=== PATIENT | female | born 1960 ===

== ENCOUNTER 2016-05-30 20:28 | Emergency (ER) | payer MEDICAID ==
[~2016-05-30] VITALS: Ht 154.9 cm; Wt 79.5 kg
[~2016-05-30 20:28] MED LIST: OXYC1TAB24 PO; SULF1TAB7 PO; TRAZ-115 PO; VENL75TA3 PO
[2016-05-30 20:35] VITALS: BP 136/84; PULSE 107; RESP 18; O2SAT 98
[2016-05-30 22:38] LABS: BASOPHILS % (AUTO) 0.3 % (0-3); EOSINOPHILS % (AUTO) 1.6 % (0-5); MONOCYTES % (AUTO) 7.9 % (4-12); Mean Corpuscular Volume 88.3 fL (81-100); NEUTROPHILS % (AUTO) 66.9 % (40-74); Platelet Count 375 bil/L (150-400)
--- NOTE | 2016-05-30 23:07 | ED.REPORT ---
HPI-Rash / Abscess Date of Service May 30, 2016 ED Provider: Dr. Matt Joel MD A 55 year old female with a history of cellulitis and substance abuse presents to the ED complaining of a rash to her head that first appeared a few weeks ago. Patient is currently taking Amoxicillin with no relief. She states that the affected areas are painful and itchy. She denies any chance of . Patient has no other medical complaints at this time. Nursing Notes Stated Complaint: NECK AND EAR PAIN, BLISTERS ON HEAD Chief Complaint: General Complaint Nursing Notes Reviewed: Yes Allergies: Coded Allergies: ibuprofen (Verified Adverse Reaction, Unknown, ulcers, 01/09/16) Uncoded Allergies: SPIDERS (Allergy, Unknown, 10/27/14) Scheduled Sulfamethoxazole/Trimeth 800-160 mg (Bactrim DS) 1 Each Tablet 1 TABLET PO BID Trazodone (Trazodone) 50 Mg Tablet 50 MG PO HS Venlafaxine (Venlafaxine) 75 Mg Tablet 225 MG PO DAILY Scheduled PRN oxyCODONE-Acetaminophen 5-325 mg (oxyCODONE-Acetaminophen 5-325 mg) 1 Each Tablet 1 TAB PO Q4H PRN PRN For Pain General Time Seen by MD: 23:07 Chief Complaint Rash Hx Obtained From: Patient Arrived By: Walk-in Onset Occurred: More than a week ago... (4 weeks) Symptom Duration: Since onset Location: : Head/face Quality: Painful Severity: Current: Mild Severity: Maximum: Mild Pertinent Negative: Pt denies other symptoms Recent Healthcare: No recent doctor visit, No recent hospitalization Past Medical History Past Medical History H/o substance abuse- crack cocaine TMJ Past Surgical History Knee surgery, ankle surgery, foot surgery Family History noncontributory Smoking History Current Every Day Smoker Social History Alcohol Use: Denies alcohol use Drug Use: THC Other Social History: Ambulatory Status Independent Review of Systems Constitutional: Denies: Chills, Fever Respiratory: Denies: Shortness of breath Cardiovascular: Denies: Chest pain GI: Denies: Abdominal pain, Nausea, Vomiting Skin: Reports Itching, Reports Rash (Rash/abscesses to head and face) Complete sys rev & neg: except as marked. Neurologic: Denies: Change LOC Physical Exam Initial Vital Signs Vital Signs (First) Date Time Temp Pulse Resp B/P Pulse Ox O2 Delivery O2 Flow Rate FiO2 05/30/16 20:35 36.3 107 18 136/84 98 Room Air Initial VS: Reviewed Head / Eyes: Atraumatic, Normocephalic, PERRL Respiratory: Breath sounds normal, Clear to auscultation, No respiratory distress Cardiovascular: Regular rate & rhythm, Heart sounds normal, Intact distal pulses Extremities: Vascular intact, Neuro intact, No swelling, No tenderness Neurologic: Alert, Oriented, Nonfocal General/Constitutional: Awake, Alert Skin: Atraumatic Rash / Lesion Notes: SKIN/RASH: multiple excoriations to the scalp Cellulitis to the scalp, neck and lymph nodes. Neck: Atraumatic, Supple NECK: Posterior cervical adenopathy Interpretation & Diagnostics Lab Results Interpretation Result Diagram: 05/30/16222105/30/16 222 Test 05/30/16 22:22 White Blood Count 10.6th/mm3 (3.8-10.1) Red Blood Count 4.35mil/mm3 (3.90-5.20) Hemoglobin 12.6g/dL (12.0-15.6) Hematocrit 38.4% (35.0-46.0) Mean Corpuscular Volume 88.3fL (81-100) Mean Corpuscular Hemoglobin 29.0pg (27.0-35.0) Mean Corpuscular Hemoglobin Concent 32.8% (32.0-37.0) Red Cell Distribution Width 13.8% (12.3-15.4) Platelet Count 375bil/L (150-400) Neutrophils (%) (Auto) 66.9% (40-74) Lymphocytes (%) (Auto) 23.1% (14-46) Monocytes (%) (Auto) 7.9% (4-12) Eosinophils (%) (Auto) 1.6% (0-5) Basophils (%) (Auto) 0.3% (0-3) Sodium Level 139mEq/L (134-144) Potassium Level 4.3mEq/L (3.5-5.2) Chloride Level 102mEq/L (97-108) Carbon Dioxide Level 24mmol/L (18-29) Blood Urea Nitrogen 12mg/dL (6-24) Creatinine 0.67mg/dL (0.57-1.00) Estimat Glomerular Filtration Rate 132mL/min (>59) Glucose Level 105mg/dL (60-99) Calcium Level 9.1mg/dL (8.5-10.1) Total Bilirubin 0.2mg/dL (0.0-1.2) Aspartate Amino Transf (AST/SGOT) 15U/L (0-50) Alanine Aminotransferase (ALT/SGPT) 12U/L (0-32) Alkaline Phosphatase 106U/L (25-150) Total Protein 7.5g/dL (6.4-8.4) Albumin 4.1g/dL (3.4-5.0) Hold Hansen Top Tube Received (Received) Re-Eval/Medical Decision Re-Evaluation/Progress : Time of Eval: 23:23 Patient Status: Condition improved Re-Evaluation/Progress Note: Patient is rechecked. She is informed of her lab results and diagnoses. All of the patient's questions are addressed. She understands and agrees with the treatment plan to discharge with a new antibiotic. Counseled Regarding: Diagnosis, Lab results, Need for follow-up, When/why to return to ED Discharge & Departure Impression: Primary Impression: Cellulitis Site of cellulitis: unspecified site Qualified Code: L03.90 - Cellulitis, unspecified Additional Impression: Adenitis Disposition: Home Discharge Condition All VS Reviewed: Yes Condition: Stable Patient Instructions: Cellulitis (ED) Additional Instructions: Thank you for trusting us with your care this evening. Please take Clindamycin twice daily for the next 5 days. Apply to all areas with open wounds. Take Ativan every 4-6 hours to help with anxiety and reduce itchiness. Schedule a follow up appointment with your primary care physician in the next week for a recheck. Please return to the emergency department for any new or worsening conditions. Please do not drink, drive or use acetaminophen while taking the Ativan. Referrals: Zohreh Cerda PA-C (PCP) Scribe Attestation Portions of this note were transcribed by Rafael Cristina. I, Dr. Joel personally performed the history, physical exam and medical decision-making; I reviewed and confirmed the accuracy of the information in the transcribed note. Signed by: Glory Santos, 05/30/16 [id number]. copies to: Zohreh Cerda PA-C, Todd P DO May 30, 2016 23:07 RAFAEL CRISTINA May 30, 2016 23:18
[2016-05-30] MEDS ORDERED: Mupirocin 2% 22 Gm Ointment TOPICAL ONE (23:15)
[2016-05-30] MEDS ORDERED: LORazepam 1 mg Tablet PO ONE (23:15)
== END 2016-05-30 23:46 | disposition home or self-care (01) ==
LOC: SED 20:28
DX: L03.811 Cellulitis of head [any part, except face] (principal); L03.221 Cellulitis of neck; L04.0 Acute lymphadenitis of face, head and neck; F17.200 Nicotine dependence, unspecified, uncomplicated; Z88.6 Allergy status to analgesic agent

== ENCOUNTER 2016-07-09 11:39 | Emergency (ER) | payer MEDICAID ==
[~2016-07-09] VITALS: Ht 154.9 cm; Wt 77.3 kg
[2016-07-09 11:43] VITALS: BP 145/77; PULSE 84; RESP 20; O2SAT 99
--- NOTE | 2016-07-09 13:59 | ED.REPORT ---
HPI-Extremity Problem Lower Date of Service Jul 09, 2016 ED Provider: Esau Hopkins MD 55 year old female presents to the ER complaining of acute on chronic bilateral hip pain onset last night, left greater than right. She states that she was diagnosed with bursitis of the affected joints, and has been treating symptoms with regular physical therapy and prescribed Percocet. Currently she is out of her pain medication and is requesting more, last two were taken today. Symptoms have not been treated with any OTC medications. Nursing Notes Stated Complaint: LEFT LEG PAIN Chief Complaint: Extremity Trauma Nursing Notes Reviewed: Yes Allergies: Coded Allergies: ibuprofen (Verified Adverse Reaction, Unknown, ulcers, 01/09/16) Uncoded Allergies: SPIDERS (Allergy, Unknown, 10/27/14) Scheduled Prednisone (PredniSONE) 20 Mg Tablet 40 MG PO DAILY Sulfamethoxazole/Trimeth 800-160 mg (Bactrim DS) 1 Each Tablet 1 TABLET PO BID Trazodone (Trazodone) 50 Mg Tablet 50 MG PO HS Venlafaxine (Venlafaxine) 75 Mg Tablet 225 MG PO DAILY Scheduled PRN oxyCODONE-Acetaminophen 5-325 mg (oxyCODONE-Acetaminophen 5-325 mg) 1 Each Tablet 1 TAB PO Q4H PRN PRN For Pain General Time Seen by MD: 13:56 Chief Complaint Hip injury right, Hip injury left Hx Obtained From: Patient Arrived By: Walk-in Onset Occurred: Yesterday Symptom Duration: Since onset Location: : Hip left: Hip right Quality: Painful Severity: Current: Moderate Severity: Maximum: Moderate Exacerbated by: Range of motion, Movement Pertinent Negative: Relieved by nothing Similar Sx Previous: Yes Past Medical History Past Medical History H/o substance abuse- crack cocaine TMJ Past Surgical History Knee surgery, ankle surgery, foot surgery Family History noncontributory Smoking History Current Every Day Smoker Social History Alcohol Use: Denies alcohol use Drug Use: THC Other Social History: Ambulatory Status Independent Review of Systems Constitutional: Denies: Chills, Fever Musculoskeletal: Reports: Joint pain (Hips), Denies: Back pain, Extremity pain, Lumbar pain, Neck pain Complete sys rev & neg: except as marked. Physical Exam Initial Vital Signs Vital Signs (First) Date Time Temp Pulse Resp B/P Pulse Ox O2 Delivery O2 Flow Rate FiO2 07/09/16 11:43 36.7 84 20 145/77 99 Room Air Initial VS: Reviewed General/Constitutional: Well-developed, Well-nourished Head / Eyes: Atraumatic, Normocephalic Neck: Supple, Non-tender, Full range of motion Upper Extremities: Vascular intact, Neuro intact, No swelling, No tenderness Skin: Warm, Dry, No cyanosis Neurologic: Alert, Oriented, Nonfocal Psychiatric: Mood/affect normal, Behavior normal, Normal thought content Lower Extremity / Pelvis / MS: Full range of motion, No deformity, Neurologic intact, Vascular intact Pain with FROM of Left hip. Ankle / Foot: Atraumatic, Inspection NL, Full range of motion, No swelling, No erythema, Non-tender, No deformity, Neurologic intact, Vascular intact, No edema Re-Eval/Medical Decision Re-Evaluation/Progress : Time of Eval: 14:04 Re-Evaluation/Progress Note: Discussed physical examination findings and plan to discharge. Patient is amenable to the plan. Return precautions given. All other questions addressed. Consultation : Referral / Consult Name: Zohreh Cerda PA-C Call Returned at: 14:09 Note: Discussed with Zohreh Cerda PA-C (PCP). Please do not refill patient's medication. Counseled Regarding: Diagnosis, Need for follow-up, When/why to return to ED Discharge & Departure Impression: Primary Impression: Left hip pain Disposition: Home Discharge Condition All VS Reviewed: Yes Condition: Stable Patient Instructions: Hip Bursitis (ED) Additional Instructions: No fracture or dangerous condition is suspected in your hip. I think he will either have arthritis or bursitis in your health. I spoke with Emma Jo PA-C, and she instructed me to not refill your pain medication early and that you have not established a pain care plan with her. You may get some benefit from Tylenol or the prednisone that I have prescribed. Referrals: Zohreh Cerda PA-C (PCP) Scribe Attestation Portions of this note were transcribed by Sergio Littlejohn. I, Dr. Hopkins, personally performed the history, physical exam and medical decision-making; I reviewed and confirmed the accuracy of the information in the transcribed note. Signed by: Glory Arias, 07/09/2016 and 14:15 copies to: Zohreh Cerda PA-C, Kirk H MD Jul 09, 2016 13:59 SERGIO LITTLEJOHN Jul 09, 2016 14:07
[2016-07-09] MEDS ORDERED: PRE20 PO (14:11)
[2016-07-09 14:19] VITALS: BP 140/72; PULSE 80; RESP 18; O2SAT 99
--- NOTE | 2016-07-09 14:55 | DRSVH ---
PROCEDURE: X-RAY PELVIS W/LAT HIP (LT) ([id number]) INDICATIONS: left hip pain difficulty walking TECHNIQUE: AP pelvis with lateral view(s) of the left hip(s). COMPARISON: None. FINDINGS: Bones: No fractures or dislocations. Pelvic ring appears intact. No suspicious bony lesions. Moder ate to severe left hip osteoarthritic degenerative changes are noted. Soft tissues: The visualized bowel gas pattern is normal. No suspicious soft tissue calcifications. IMPRESSION: No fracture. No acute osseous lesion. If symptoms and/or clinical suspicion for patholog y persists, further assessment with repeat radiographs or advanced imaging (e.g. CT, MRI or bone scan ) may be helpful for further assessment. Dictated by: Alem Hampton MD, PhD on 07/09/2016 at 14:51 Approved by: Alem Hampton MD, PhD on 07/09/2016 at 14:54
== END 2016-07-09 14:20 | disposition home or self-care (01) ==
LOC: SED 11:39
DX: M25.552 Pain in left hip (principal); M25.551 Pain in right hip; F17.200 Nicotine dependence, unspecified, uncomplicated; Z88.8 Allergy status to other drugs, medicaments and biological substances

== ENCOUNTER 2017-01-15 20:55 | Emergency (ER) | payer MEDICAID ==
[~2017-01-15] VITALS: Ht 154.9 cm; Wt 70.0 kg
[~2017-01-15 20:55] MED LIST changes: +PRE20 PO
[2017-01-15 21:12] VITALS: BP 140/88; PULSE 97; RESP 18; O2SAT 99
--- NOTE | 2017-01-15 22:18 | ED.REPORT ---
HPI-Dental/Mouth Prob Date of Service Jan 15, 2017 ED Provider: Glenroy Chua MD The patient is a 56 year old female with a history of polysubstance abuse and TMJ syndrome who presents to the ED with dental pain that began yesterday following excision of the tooth (#31). Patient had her tooth pulled yesterday and is currently expressing concern for "fungal infection because the area looks black". She denies fever of chills. She states she may have some black mold in her home and she is worried that it is now growing at her dental extraction site. Nursing Notes Stated Complaint: BLACK TOOTH,PULLED YESTERDAY Chief Complaint: Dental Nursing Notes Reviewed: Yes Allergies: Coded Allergies: ibuprofen (Verified Adverse Reaction, Unknown, ulcers, 01/15/17) Uncoded Allergies: SPIDERS (Allergy, Unknown, 10/27/14) Scheduled Prednisone (PredniSONE) 20 Mg Tablet 40 MG PO DAILY Sulfamethoxazole/Trimeth 800-160 mg (Bactrim DS) 1 Each Tablet 1 TABLET PO BID Trazodone (Trazodone) 50 Mg Tablet 50 MG PO HS Venlafaxine (Venlafaxine) 75 Mg Tablet 225 MG PO DAILY Scheduled PRN oxyCODONE-Acetaminophen 5-325 mg (oxyCODONE-Acetaminophen 5-325 mg) 1 Each Tablet 1 TAB PO Q4H PRN PRN For Pain General Time Seen by MD: 22:14 Chief Complaint Tooth pain Hx Obtained From: Patient Arrived By: Walk-in Onset Occurred: Yesterday Symptom Duration: Since onset Quality: Painful Severity: Current: Moderate Severity: Maximum: Moderate Associated with: Denies: Chills, Fever Pertinent Negative: Pt denies other symptoms Recent Healthcare: No recent doctor visit, No recent hospitalization Past Medical History Past Medical History H/o substance abuse- crack cocaine TMJ Past Surgical History Knee surgery, ankle surgery, foot surgery Family History noncontributory Smoking History Current Every Day Smoker Social History Alcohol Use: Denies alcohol use Drug Use: THC Other Social History: , Local resident Ambulatory Status Independent Review of Systems Constitutional: Denies: Chills, Fever Ears / Nose / Throat: Reports: Toothache (& swelling) Complete sys rev & neg: except as marked. Physical Exam Initial Vital Signs Vital Signs (First) Date Time Temp Pulse Resp B/P Pulse Ox O2 Delivery O2 Flow Rate FiO2 01/15/17 21:12 36.9 97 18 140/88 99 Room Air Initial VS: Reviewed Head / Eyes: Atraumatic, Normocephalic, PERRL Extremities: Vascular intact, Neuro intact, No swelling, No tenderness Skin: Warm, Dry, No cyanosis Neurologic: Alert, Oriented, Nonfocal Psychiatric: Mood/affect normal, Behavior normal, Normal thought content ENT: Atraumatic, Airway patent, Mucous membranes moist, Pharynx NL, No facial swelling Pharynx / Tonsils / Uvula: Negative: Pharyngeal erythema Dental / Gums: Positive: Gum swelling, Gum tenderness Excised tooth #31 with clottted blood to the base of the gum Mininmal swelling to the surrounding area No signs of infection Neck: Atraumatic, Supple, Full range of motion, No adenopathy Head / Eyes: Atraumatic, Normocephalic, PERRL Respiratory / Chest: Atraumatic, Breath sounds NL, Breath sounds = bilat, No respiratory distress Cardiovascular: Heart rate NL, Regular rhythm, Heart sounds NL, No gallop, No murmurs, No rubs, Peripheral circulation NL, Pulses = bilaterally Re-Eval/Medical Decision Med Decision/Clinical Course The patient is a 56 year old female with a history of polysubstance abuse and TMJ syndrome who presents to the ED with dental pain that began yesterday following excision of the tooth (#31). Patient had her tooth pulled yesterday and is currently expressing concern for "fungal infection because the area looks black". She denies fever of chills. She states she may have some black mold in her home and she is worried that it is now growing at her dental extraction site. Here in the emergency department the patient is afebrile stable vital signs and examination as above. Her dental extraction site appears well. There is some dark clotted blood at the base which I suspect is her concern. There is no evidence of purulent drainage, abscess or infection. There is no evidence of Alejandro angina and her airway is widely patent. Neck is supple. She is tolerating her secretions well. There is no active bleeding. There is no significant swelling. I do not feel that antibiotics are indicated. Patient was given one tablet of [place] here in the emergency department for pain as she is not driving home. She is advised to follow up closely with her dentist. She will return right away for any increasing swelling, fevers, pain or other concerning signs or symptoms. Prior to discharge follow-up and return precautions were reviewed in detail with the patient who verbalized understanding and agreement with the plan. The patient was discharged in stable condition. Re-Evaluation/Progress : Time of Eval: 22:45 Patient Status: Condition improved Re-Evaluation/Progress Note: Patient condition is re-evaluated. She is informed of her current results. All questions about the intended treatment plan are addressed. Patient understands and agrees with the plan. Counseled Regarding: Diagnosis, Need for follow-up, When/why to return to ED Discharge & Departure Primary Impression: Pain, dental Disposition: Home Discharge Condition All VS Reviewed: Yes Condition: Improved Patient Instructions: Tooth Extraction (ED), Toothache (ED) Additional Instructions: Thank you for seeking care at emergency room. It is difficult for us to make definitive diagnoses in the ED but we believe that the coloration of your gum is due to clotted blood. Our primary goal today in the ED was to evaluate you for any life-threatening conditions. Your evaluation was reassuring. You should follow-up with your primary doctor and dentist in the next week. You should return to the ED immediately if you develop fevers, chills, nausea, vomiting, swelling, redness or any other concerning signs or symptoms. Thank you for letting us partake in your care today. Referrals: Zohreh Cerda PA-C (PCP) Scribe Attestation Portions of this note were transcribed by Rafael Fabian. I, Dr. Chua, personally performed the history, physical exam and medical decision-making; I reviewed and confirmed the accuracy of the information in the transcribed note. Signed by: Rafael Fabian, 01/15/17. copies to: Zohreh Cerda PA-C, Beck O MD Jan 15, 2017 22:18 RAFAEL FABIAN Jan 15, 2017 22:28
[2017-01-15] MEDS ORDERED: HYDROcodone-APAP 5-325 mg Tablet PO ONE (22:45)
[2017-01-15 23:21] VITALS: BP 163/94; PULSE 88; O2SAT 100
== END 2017-01-15 23:21 | disposition home or self-care (01) ==
LOC: SED 20:55
DX: K08.89 Other specified disorders of teeth and supporting structures (principal); F14.10 Cocaine abuse, uncomplicated; F17.200 Nicotine dependence, unspecified, uncomplicated; Z98.818 Other dental procedure status; Z98.890 Other specified postprocedural states; Z88.6 Allergy status to analgesic agent